=== PATIENT | male | born 1960 | race Caucasian/White ===

== ENCOUNTER → 2020-11-07 09:24 | Outpatient (BNVA) | payer OTHER, SELFPAY | PROVIDERS: PCP Physician Assistant; Visit Provider Internal Medicine Cardiovascular Disease | DX: Z45.018 Encounter for adjustment and management of other part of cardiac pacemaker (principal); I47.2 Ventricular tachycardia | CPT/HCPCS: 99212 ==

== ENCOUNTER 2021-02-27 10:42 | Outpatient (REF) | payer OTHER, SELFPAY ==
[2021-02-27 13:52] LABS: Hematocrit 42.4 % (42-52); Hemoglobin 14.2 g/dl (14.0-18.0); Mean Corpuscular HGB Conc 33.5 g/dl (31.0-36.0); Mean Corpuscular Hemoglobin 31.2 pg (27.0-33.0); Mean Corpuscular Volume 93.2 fL (80-98); Mean Platelet Volume 10.5 fL (9.4-12.4); Platelet Count 187 X10*3/uL (160-400); Red Blood Count 4.55 X10*6/uL (4.60-5.80); Red Cell Distribution Width 12.2 % (11.0-16.0)
[2021-02-27 14:17] LABS: Alanine Aminotransferase 29 U/L (0-40); Albumin Level 4.2 g/dL (3.5-5.0); Alkaline Phosphatase 91 U/L (39-117); Anion Gap 13 (12-20); Aspartate Amino Transferase 28 U/L (5-37); Bilirubin Total 0.8 mg/dL (0.0-1.0); Blood Urea Nitrogen 24 mg/dL (9-16); Calcium 9.3 mg/dL (8.4-10.2); Carbon Dioxide 30 mmol/L (22-29); Chloride 105 mmol/L (96-108); Cholesterol 146 mg/dL; Estimated Glomerular Filt Rate 59; Glucose Fasting 101 mg/dL (60-99); HDL Cholesterol 50 mg/dL; LDL Cholesterol Calculated 75 mg/dl; Potassium 4.1 mmol/L (3.3-5.1); Sodium 144 mmol/L (135-145); Total Protein 6.5 g/dL (6.5-8.0); Triglycerides 109 mg/dL
[2021-02-27 14:29] LABS: Prostate Specific Antigen Scr 1.96 ng/mL (<0.05-4.0); TSH reflex Free T4 2.32 uIU/mL (0.32-4.0)
[2021-02-27 14:39] LABS: Creatinine Urine 142.48 mg/dL; Microalbum/Creatinine Ratio Ur 4.9 ug/mg cr
== END 2021-02-27 10:43 | disposition home or self-care (01) ==
LOC: HO.HMGCLDS 10:42
PROVIDERS: PCP Physician Assistant; Visit Provider Physician Assistant
DX: I10 Essential (primary) hypertension (principal); E78.2 Mixed hyperlipidemia; Z12.5 Encounter for screening for malignant neoplasm of prostate
CPT/HCPCS: 36415; 80053; 80061; 82043; 84153; 84443; 85027

== ENCOUNTER → 2021-04-12 10:07 | Outpatient (BNVA) | payer OTHER, SELFPAY | PROVIDERS: PCP Physician Assistant; Visit Provider Internal Medicine | DX: J44.9 Chronic obstructive pulmonary disease, unspecified (principal) | CPT/HCPCS: 99212 ==

== ENCOUNTER → 2021-05-10 09:52 | Outpatient (BNVA) | payer SELFPAY | PROVIDERS: PCP Physician Assistant | DX: R76.11 Nonspecific reaction to tuberculin skin test without active tuberculosis (principal) ==

== ENCOUNTER → 2021-08-11 09:27 | Outpatient (REF) | payer OTHER, SELFPAY ==
--- NOTE | 2021-08-11 09:32 | CA_ITS ---
Transthoracic Echocardiogram Patient (Last, First, Middle): Holden Man E Gender: Male Date of : 1960 Age: 61 Procedure Date: 08/11/2021 Procedure Type: Transthoracic Echocardiogram Location: OP Height: 177.8 cm Weight: 79.83 kg BSA: 1.98 m2 Heart Rate: bpm BP: 130 / 79 mmHg Lighting Fixture Installer: RONNI Referring MD: Lennie Don AUDIO VISUAL ENGINEERCira Symptoms: I47.2 - Ventricular tachycardia Conclusions: - Normal left ventricular size, thickness, systolic function, and wall motion. The visually estimated ejection fraction is between 55-60%. - Normal right ventricular cavity size and systolic function. Findings Left Ventricle Normal left ventricular size, thickness, systolic function, and wall motion. The visually estimated ejection fraction is between 55-60%. Diastolic function is normal for age. Right Ventricle Normal right ventricular cavity size and systolic function. Atria Both atria are normal in size. Aortic Valve Normal aortic valve structure and function. There is no aortic valve stenosis. There is no aortic valve regurgitation. Mitral Valve Normal mitral valve structure and function. There is no mitral valve regurgitation. There is no mitral valve stenosis. Pulmonic Valve Normal pulmonic valve structure and function. There is trace pulmonic valve regurgitation. Tricuspid Valve Normal tricuspid valve structure. There is trace tricuspid valve regurgitation. Normal right atrial pressure. There is no evidence of pulmonary hypertension. Great Vessels All visible segments of the aorta are normal in size. The visualized portions of the pulmonary artery and branches are normal. Venous The inferior vena cava is normal in size and collapses greater than 50% with inspiration. Pericardium/Pleural Normal pericardial structure. There is no evidence of pericardial effusion. Measurements 2D Linear Measurements IVSd: 0.95 0.6-0.9/0.6-1.0 cm LVIDd: 4.61 3.9-5.3/4.2-5.9 cm LVIDd Index: 2.33 2.4-3.2/2.2-3.1 cm/m2 LVIDs: 3.10 2.0-3.6 cm LVPWd: 1.00 0.7-1.1 cm Ao Root: 3.00 2.1-3.5 cm LA Diam: 2.30 2.7-3.8/3.0-4.0 cm LAIDs Index: 1.16 1.5-2.3 cm/m2 LV Mass: 191.57 67-162/88-224 g LV Mass Index: 96.75 43-95/49-115 g/m2 LVOT Diam: 2.30 3.0+(-)1.3 cm 2D Systolic Function EF 4C: 68.30 >55% EF 2C: 60.90 >55% EF BiP: 64.80 >55% Mitral Valve MV Pk E: 0.67 MV PK A: 0.50 MV Decel Time: 215.00 E/A: 1.30 E'Lateral: 10.60 E'Medial: 7.40 E/E' Med: 9.00 E/E' Lat: 6.30 PHT: 63.00 MVA PHT: 3.49 Decel Taliaferro: 3.10 Aortic Valve AoV Pk Anam: 1.14 AoV Pk Grad: 5.00 LVOT LVOT Pk Anam: 0.81 LVOT Mn Anam: 0.54 LVOT VTI: 0.17 LVOT Pk Grad: 3.00 LVOT Mn Grad: 1.00 LVOT Diam: 2.30 LVOT Area: 4.15 Diastolic Function MV Pk E: 0.67 MV Pk A: 0.50 E/A: 1.30 E'Medial: 7.40 E/E' Med: 9.00 E' Laterial: 10.60 E/E' Lat: 6.30 Right Ventricle TAPSE (mm): 2.26 Tricuspid Valve TR Pk Anam: 2.32 TR Pk Grad: 22.00 RA Press: 3.00 RVSP: 25.00 Great Vessels Aorta Ao Root-2D: 3.00 2.0-3.7 cm Ao Asc: 3.20 2.1-3.4 cm Updated in Other Vendor System with Status of Final Jimy Tucker MD electronically signed on 08/13/2021 5:38:14 PM with status of Final
== END ==
LOC: HO.CARD 09:27
PROVIDERS: PCP Physician Assistant; Visit Provider Nurse Practitioner Family
DX: I47.2 Ventricular tachycardia (principal)
CPT/HCPCS: 93306

== ENCOUNTER 2021-08-26 09:41 | Outpatient (REF) | payer OTHER, SELFPAY ==
--- NOTE | ~2021-08-26 | XR_ITS ---
EXAMINATION: XR CHEST CLINICAL INFORMATION: Pleurodynia COMPARISON: Previous chest x-ray most recent April 2019 TECHNIQUE: 2 views of the chest were obtained. FINDINGS: The cardiac and mediastinal contours are normal. There is a left subclavian dual chamber pacemaker that appears unchanged. The lungs are well inflated. The lungs are clear. There is no pleural effusion or pneumothorax. Bony structures are unremarkable. XR/XR chest 2V IMPRESSION: No evidence for acute disease in the chest.
[2021-08-26 11:32] LABS: Hematocrit 44.2 % (42.0-52.0); Hemoglobin 15.3 g/dl (14.0-18.0); Mean Corpuscular HGB Conc 34.6 g/dl (31.0-36.0); Mean Corpuscular Volume 92.5 fL (80.0-98.0); Mean Platelet Volume 9.7 fL (9.4-12.4); Platelet Count 213 X10*3/uL (160-400); Red Blood Count 4.78 X10*6/uL (4.60-5.80); Red Cell Distribution Width 12.2 % (11.0-16.0); White Blood Count 6.7 X10*3/uL (4.8-10.8)
[2021-08-26 11:45] LABS: Alanine Aminotransferase 29 U/L (0-40); Albumin Level 4.1 g/dL (3.5-5.0); Alkaline Phosphatase 103 U/L (39-117); Anion Gap 13 (12-20); Aspartate Amino Transferase 33 U/L (5-37); Bilirubin Total 1.1 mg/dL (0.0-1.0); Blood Urea Nitrogen 18 mg/dL (9-16); Calcium 9.3 mg/dL (8.4-10.2); Carbon Dioxide 28 mmol/L (22-29); Chloride 105 mmol/L (96-108); Cholesterol 148 mg/dL; Estimated Glomerular Filt Rate 58; Glucose Fasting 111 mg/dL (60-99); HDL Cholesterol 56 mg/dL; LDL Cholesterol Calculated 71 mg/dl; Sodium 141 mmol/L (135-145); Total Protein 6.6 g/dL (6.5-8.0); Triglycerides 106 mg/dL
[2021-08-26 12:12] LABS: Prostate Specific Antigen Scr 2.37 ng/mL (<0.05-4.0); TSH reflex Free T4 1.82 uIU/mL (0.32-4.0)
== END 2021-08-26 09:42 | disposition home or self-care (01) ==
LOC: HO.HMGCX 09:41
PROVIDERS: PCP Physician Assistant; Visit Provider Physician Assistant
DX: Z12.5 Encounter for screening for malignant neoplasm of prostate (principal); R07.81 Pleurodynia; I10 Essential (primary) hypertension; E78.2 Mixed hyperlipidemia
CPT/HCPCS: 36415; 71046; 80053; 80061; 84153; 84443; 85027

== ENCOUNTER 2022-01-12 09:08 | Outpatient (REF) | payer OTHER, SELFPAY ==
[2022-01-12 11:35] LABS: Hematocrit 42.1 % (42.0-52.0); Hemoglobin 14.4 g/dl (14.0-18.0); Mean Corpuscular HGB Conc 34.2 g/dl (31.0-36.0); Mean Corpuscular Hemoglobin 31.2 pg (27.0-33.0); Mean Corpuscular Volume 91.3 fL (80.0-98.0); Mean Platelet Volume 9.6 fL (9.4-12.4); Platelet Count 189 X10*3/uL (160-400); Red Blood Count 4.61 X10*6/uL (4.60-5.80); Red Cell Distribution Width 12.2 % (11.0-16.0); White Blood Count 6.4 X10*3/uL (4.8-10.8)
[2022-01-12 12:05] LABS: Alanine Aminotransferase 30 U/L (0-40); Alkaline Phosphatase 88 U/L (39-117); Anion Gap 11 (12-20); Aspartate Amino Transferase 26 U/L (5-37); Bilirubin Total 0.5 mg/dL (0.0-1.0); Blood Urea Nitrogen 20 mg/dL (9-16); Calcium 9.5 mg/dL (8.4-10.2); Carbon Dioxide 31 mmol/L (22-29); Chloride 105 mmol/L (96-108); Cholesterol 137 mg/dL; Estimated Glomerular Filt Rate > 60; Glucose Fasting 111 mg/dL (60-99); HDL Cholesterol 52 mg/dL; LDL Cholesterol Calculated 72 mg/dl; Magnesium 2.2 mg/dL (1.6-2.6); Potassium 4.6 mmol/L (3.3-5.1); Sodium 142 mmol/L (135-145); Total Protein 6.3 g/dL (6.5-8.0); Triglycerides 67 mg/dL
[2022-01-12 12:28] LABS: Prostate Specific Antigen 1.87 ng/mL (<0.05-4.0)
== END 2022-01-12 09:09 | disposition home or self-care (01) ==
LOC: HO.HMGCLDS 09:08
PROVIDERS: Visit Provider Nurse Practitioner Family
DX: Z00.00 Encounter for general adult medical examination without abnormal findings (principal); I47.2 Ventricular tachycardia; E78.2 Mixed hyperlipidemia
CPT/HCPCS: 36415; 80053; 80061; 83735; 84153; 85027

== ENCOUNTER → 2022-01-31 09:37 | Outpatient (REF) | payer OTHER, SELFPAY ==
--- NOTE | ~2022-01-31 | NM_ITS ---
Lexiscan Myocardial perfusion study Indication: Shortness of breath, history of SVT, prominent pacemaker, assess for coronary disease and ischemia Technique: The patient was brought in for a Lexiscan perfusion study on 01/31/2022 and was injected 0.4 mg of Lexiscan intravenously. Within a minute of this injection 30 mCi of sestamibi was given intravenously. Images were obtained using the SPECT gamma camera interlaced with the gating device. Images were obtained in supine position. Resting perfusion study was performed on 02/01/2022. Patient was administered 30 mCi of sestamibi intravenously at rest. Images were then obtained in supine position. Total DLP 81mGy-cm. Images were processed with the software and compared side to side in short axis, horizontal long axis and vertical long axis views. Findings: Raw acquisition was reviewed. The stress perfusion study showed diminished tracer uptake along the inferior wall. With CT attenuation correction, there is improvement in tracer uptake and hence could be from diaphragmatic attenuation artifact. The gated study shows normal LV systolic function with calculated LVEF of 60%. LV cavity is normal in size. The gated study shows normal wall thickening and contraction of segments. Resting study shows diminished tracer uptake along the inferior wall. However there is improved uptake with CT attenuation correction sestamibi diaphragmatic attenuation artifact. Gating at rest reveals normal wall motion with ejection fraction at 55%. The findings are consistent with fixed inferior wall defect. No reversible defects. NM/NM cardiolite stress test Impression: 1. Myocardial perfusion imaging study shows no clear evidence of ischemia or infarction. Likely normal perfusion. 2. Gated LVEF percent during stress and 55% during rest. 3. Transient ischemic dilatation not present. EKG component of the test reported separately.
--- NOTE | 2022-01-31 09:43 | CA_ITS ---
Acquisition Time: 2022-01-31 09:55:35 Total Exercise Time: 00:02:00 Test Indications: SOB Medications: SEE CHART Protocol: LEXISCAN Max HR: 096 BPM 61% of Pred: 157 BPM Max BP: 134/074 mmHG Max Work Load: 1.0 METS Pharmacological stress test using Lexiscan while sitting and kicking his feet. Pt tolerated well, denies any anginal sx. EKG without any arrhythmias, non-diagnostic for ischemia. Nuclear images to follow. Normotensive response to test. Test reviewed with Dr. Mccrary Referred By: Lennie Don Overread By: Shae Yoo NP
== END ==
LOC: HO.CARD 09:37
PROVIDERS: Visit Provider Nurse Practitioner Family
DX: I47.2 Ventricular tachycardia (principal); Z95.0 Presence of cardiac pacemaker
CPT/HCPCS: 78452; 93017; A9500; J0280; J2785

== ENCOUNTER → 2022-04-10 09:52 | Outpatient (BNVA) | payer OTHER, SELFPAY | PROVIDERS: PCP Physician Assistant; Visit Provider Internal Medicine | DX: J41.0 Simple chronic bronchitis (principal) | CPT/HCPCS: 94010; 99212 ==

== ENCOUNTER → 2022-07-24 10:30 | Outpatient (BNVA) | payer OTHER, SELFPAY | PROVIDERS: PCP Physician Assistant; Referring Provider Physician Assistant; Visit Provider Internal Medicine Cardiovascular Disease | DX: Z45.018 Encounter for adjustment and management of other part of cardiac pacemaker (principal); I47.20 Ventricular tachycardia, unspecified; I10 Essential (primary) hypertension | CPT/HCPCS: 93005; 93280; 99212 ==

== ENCOUNTER → 2023-04-18 11:10 | Outpatient (BNVA) | payer OTHER, SELFPAY | PROVIDERS: PCP Physician Assistant; Visit Provider Internal Medicine | DX: J41.0 Simple chronic bronchitis (principal) | CPT/HCPCS: 99212 ==

== ENCOUNTER → 2023-05-06 23:59 | Outpatient (BNV) | payer OTHER, SELFPAY ==
--- NOTE | 2023-05-15 15:00 | MHC.OFFVIS ---
Intake Intake Visit Reasons: Remote Device Check- [facility] Allergies No Known Allergies Allergy (Verified 04/18/23 11:43) PFS Medical History Cardiac pacemaker in situ COPD (chronic obstructive pulmonary disease) H/O malignant melanoma of skin NSVT (nonsustained ventricular tachycardia) Second degree AV block Surgical History History of Mohs micrographic surgery for skin cancer History of permanent cardiac pacemaker placement Hx of colonoscopy Family History Father Lung cancer Mother No problems noted. 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 ) Office Procedures Cardiac Device Check Cardiac Device Check Details: Remote pacemaker report generated 05/06/2023. Pacemaker function is adequate [id number] Cardiac Device Interrogation, pacemaker Procedure code (CPT) selection complete Coding Level of Care Code Procedure Only Diagnoses CPT Codes Cardiac Device Check - Cardiac Device 12: [id number] Cardiac Device Interrogation, pacemaker ([id number])
== END ==
PROVIDERS: PCP Physician Assistant; Visit Provider Internal Medicine Cardiovascular Disease
DX: I47.20 Ventricular tachycardia, unspecified (principal); Z95.0 Presence of cardiac pacemaker
CPT/HCPCS: 93294

== ENCOUNTER → 2023-08-05 23:59 | Outpatient (BNV) | payer MEDICARE, SELFPAY ==
--- NOTE | 2023-08-05 16:30 | MHC.OFFVIS ---
Intake Intake Visit Reasons: Remote Device Check- [facility] Allergies No Known Allergies Allergy (Verified 04/18/23 11:43) [facility] Medical History Cardiac pacemaker in situ COPD (chronic obstructive pulmonary disease) H/O malignant melanoma of skin NSVT (nonsustained ventricular tachycardia) Second degree AV block Surgical History History of Mohs micrographic surgery for skin cancer History of permanent cardiac pacemaker placement Hx of colonoscopy Family History Father Lung cancer Mother No problems noted. 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 ) Office Procedures Cardiac Device Check Cardiac Device Check Details: Remote pacemaker report generated 08/05/2023. Pacemaker function is adequate [id number] Cardiac Device Interrogation, pacemaker Procedure code (CPT) selection complete Coding Level of Care Code Procedure Only CPT Codes Cardiac Device Check - Cardiac Device 12: [id number] Cardiac Device Interrogation, pacemaker ([id number])
== END ==
PROVIDERS: PCP Physician Assistant; Visit Provider Internal Medicine Cardiovascular Disease
DX: I44.1 Atrioventricular block, second degree (principal); Z95.0 Presence of cardiac pacemaker
CPT/HCPCS: 93294

== ENCOUNTER 2023-08-13 11:16 | Outpatient (AMB) | payer MEDICARE, SELFPAY ==
[2023-08-13 11:20] VITALS: BP 120/80; PULSE 56; BMI 26.3
--- NOTE | 2023-08-13 11:20 | A.OFFVIS_ITS ---
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 He has been doing well. He denies any symptoms of palpitations. Complains of exertional shortness of breath related to his COPD and feels tired. Denies any orthopnea, PND. No exertional chest pain. Takes all his medications regularly. [facility] Medical History COPD (chronic obstructive pulmonary disease) H/O malignant melanoma of skin NSVT (nonsustained ventricular tachycardia) Second degree AV block Cardiac pacemaker in situ Surgical History History of Mohs micrographic surgery for skin cancer Hx of colonoscopy History of permanent cardiac pacemaker placement Family History Father Lung cancer Mother No problems noted. 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 ) Review of Systems Const Denies chills, Denies fatigue, Denies fever(s), Denies frequent falls, Denies weakness, Denies weight gain and Denies weight loss ENT Denies dizziness Card Denies chest pain, Denies leg edema, Denies lightheadedness, Denies palpitations, Denies dyspnea, Denies dyspnea on exertion, Denies orthopnea and Denies other (loss of consciousness) Resp Denies cough, Denies dyspnea and Denies dyspnea on exertion GI Denies hematochezia and Denies change in stool character Musc Denies abnormal gait, Denies muscle weakness, Denies numbness, Denies radiating pain into limb and Denies tingling Neuro Denies abnormal gait, Denies dizziness, Denies frequent falls, Denies numbness, Denies tingling and Denies weakness Endo Denies fatigue and Denies palpitations Physical Exam Vital Signs: Last Vital Signs Pulse 56 08/13/23 11:20 BP 120/80 08/13/23 11:20 BMI result Body Mass Index 26.3 Const General: cooperative, comfortable, alert and awake Nutritional Appearance: average body habitus Orientation/consciousness: patient oriented x3 Limitations: no limitations Neck Neck: Yes trachea midline, Yes supple and Yes no JVD Chest Chest palpation & inspection: normal inspection of the chest Resp Effort & Inspection: normal respiratory effort Auscultation: clear to auscultation bilaterally and diminished lung sounds Cardio Jugular venous distension: no JVD Palpation: normal PMI Rate: regular rate Rhythm: regular rhythm Heart sounds: S1 normal heart sound present and S2 normal heart sound present GI Auscultation: normal bowel sounds Skin General skin exam: no rashes or lesions noted Neuro General: patient oriented x3 and no focal motor deficits Extrem General: Yes no clubbing, cyanosis or edema Psych Appearance: grossly normal Office Procedures Cardiac Device Check Cardiac Device Check Details: Dual-chamber [facility] pacemaker in place. Programmed in DDDR at 60 beats per minute. No arrhythmias detected. Atrial pacing 26% of the time. Atrial pacing thresholds adequate and in our capture mode. RV pacing thresholds adequate. Atrial ventricular sensing is adequate. Pacing lead impedance is stable. Battery life is at about 7 years [id number] Cardiac Device Check, pacemaker dual lead Procedure code (CPT) selection complete EKG Details: EKG shows sinus bradycardia with RSR prime pattern in lead V1 with septal QS pattern [id number], Complete Assessment & Plan Assessment & Plan (1) Cardiac pacemaker in situ: Comment: For second-degree AV block, has not had any chest discomforts or palpitations. Code(s): Z95.0 - Presence of cardiac pacemaker Plan: Cardiac pacemaker in-situ for second-degree AV block but mostly pacing in the a trium. Patient denies any current cardiac symptoms. Will continue follow the pacemaker remotely every 3 months and follow up in the clinic in 1 year's time. (2) NSVT (nonsustained ventricular tachycardia): Code(s): I47.2 - Ventricular tachycardia Plan: Prior history of nonsustained VT without any clinical recurrence or recurrent by pacer telemetry. Continue to use metoprolol for suppression. Avoidance of stimulants was discussed. (3) HTN (hypertension): Code(s): I10 - Essential (primary) hypertension Qualifiers: Hypertension type: essential hypertension Qualified Code(s): I10 - Essential (primary) hypertension Plan: Hypertension which is currently well optimized advised to monitor blood pressure at home maintain a log. Goal blood pressure less than 130/84. Low-salt diet was discussed. Importance of good blood pressure control was discussed. Advise increase activity level. Follow up in the clinic 1 year's time, sooner p.r.n.. Thank you for allowing me to partake in his care Coding Level of Care Code Est Pt Level 4 (03452) Diagnoses Cardiac pacemaker in situ Z95.0 NSVT (nonsustained ventricular tachycardia) I47.2 Essential hypertension I10 Hypertension type: essential hypertension CPT Codes Cardiac Device Check - Cardiac Device 2: 42391-VT Cardiac Device Check, pacemaker dual lead ([id number]) EKG - CPT: 32131-Jmtdvmfamfttiypza, Complete ([id number])
== END 2023-08-13 11:48 | disposition home or self-care (01) ==
PROVIDERS: Visit Provider Internal Medicine Cardiovascular Disease
DX: I47.20 Ventricular tachycardia, unspecified (principal); Z95.0 Presence of cardiac pacemaker; I10 Essential (primary) hypertension
CPT/HCPCS: 93280; 99214

== ENCOUNTER → 2023-08-13 11:16 | Outpatient (BNVA) | payer MEDICARE, SELFPAY | PROVIDERS: Visit Provider Internal Medicine Cardiovascular Disease | DX: Z45.018 Encounter for adjustment and management of other part of cardiac pacemaker (principal); I47.20 Ventricular tachycardia, unspecified; I10 Essential (primary) hypertension | CPT/HCPCS: 93005; 93280; 99212 ==

== ENCOUNTER 2023-09-13 09:21 | Outpatient (REF) | payer MEDICARE, SELFPAY ==
[2023-09-13 11:37] LABS: Hematocrit 43.9 % (42.0-52.0); Hemoglobin 14.8 g/dl (14.0-18.0); Mean Corpuscular HGB Conc 33.7 g/dl (31.0-36.0); Mean Corpuscular Hemoglobin 31.4 pg (27.0-33.0); Platelet Count 210 X10*3/uL (160-400); Red Blood Count 4.72 X10*6/uL (4.60-5.80); Red Cell Distribution Width 12.1 % (11.0-16.0); White Blood Count 6.5 X10*3/uL (4.8-10.8)
[2023-09-13 12:06] LABS: Alanine Aminotransferase 25 U/L (0-40); Albumin Level 4.1 g/dL (3.5-5.0); Alkaline Phosphatase 96 U/L (39-117); Anion Gap 10 (12-20); Aspartate Amino Transferase 25 U/L (5-37); Bilirubin Total 0.6 mg/dL (0.0-1.0); Blood Urea Nitrogen 24 mg/dL (9-16); Calcium 9.5 mg/dL (8.4-10.2); Carbon Dioxide 29 mmol/L (22-29); Chloride 108 mmol/L (96-108); Cholesterol 148 mg/dL (<200); Estimated Glomerular Filt Rate > 60; Glucose Fasting 103 mg/dL (60-99); HDL Cholesterol 55 mg/dL (>40); LDL Cholesterol Calculated 72 mg/dL (<100); Potassium 4.3 mmol/L (3.3-5.1); Sodium 143 mmol/L (135-145); Total Protein 6.9 g/dL (6.5-8.0); Triglycerides 108 mg/dL (<150)
[2023-09-13 12:10] LABS: Prostate Specific Antigen Scr 2.51 ng/mL (<0.05-4.0)
[2023-09-13 12:36] LABS: Creatinine Urine 76.47 mg/dL; Microalbumin Urine < 5.0 mg/L
== END 2023-09-13 09:22 | disposition home or self-care (01) ==
LOC: HO.HMGCLDS 09:21
PROVIDERS: PCP Physician Assistant; Visit Provider Physician Assistant
DX: I10 Essential (primary) hypertension (principal); E78.2 Mixed hyperlipidemia; Z12.5 Encounter for screening for malignant neoplasm of prostate
CPT/HCPCS: 36415; 80053; 80061; 82043; 82570; 84153; 85027

== ENCOUNTER → 2023-11-04 23:59 | Outpatient (BNV) | payer MEDICARE, SELFPAY ==
--- NOTE | 2023-11-05 12:27 | MHC.OFFVIS ---
Intake Intake Visit Reasons: Remote Device Check- [facility] Allergies No Known Allergies Allergy (Verified 04/18/23 11:43) PFSH Medical History COPD (chronic obstructive pulmonary disease) H/O malignant melanoma of skin NSVT (nonsustained ventricular tachycardia) Second degree AV block Cardiac pacemaker in situ Surgical History History of Mohs micrographic surgery for skin cancer Hx of colonoscopy History of permanent cardiac pacemaker placement Family History Father Lung cancer Mother No problems noted. 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 ) Office Procedures Cardiac Device Check Cardiac Device Check Details: Remote pacemaker report generated 11/04/2023. Pacemaker function is adequate. One episode of high ventricular rate noted consistent with SVT [id number] Cardiac Device Interrogation, pacemaker Procedure code (CPT) selection complete Assessment & Plan Assessment & Plan (1) Cardiac pacemaker in situ: Comment: For second-degree AV block, has not had any chest discomforts or palpitations. Code(s): Z95.0 - Presence of cardiac pacemaker Plan: See above Coding Level of Care Code Procedure Only Diagnoses Cardiac pacemaker in situ Z95.0 CPT Codes Cardiac Device Check - Cardiac Device 12: [id number] Cardiac Device Interrogation, pacemaker ([id number])
== END ==
PROVIDERS: PCP Physician Assistant; Visit Provider Internal Medicine Cardiovascular Disease
DX: I47.20 Ventricular tachycardia, unspecified (principal); Z95.0 Presence of cardiac pacemaker
CPT/HCPCS: 93294

== ENCOUNTER → 2024-02-03 23:59 | Outpatient (BNV) | payer MEDICARE, SELFPAY ==
--- NOTE | 2024-02-04 16:44 | MHC.OFFVIS ---
Intake Visit Reasons: Remote device check- [facility] Allergies No Known Allergies Allergy (Verified 04/18/23 11:43) PFSH Medical History COPD (chronic obstructive pulmonary disease) H/O malignant melanoma of skin NSVT (nonsustained ventricular tachycardia) Second degree AV block Cardiac pacemaker in situ Surgical History History of Mohs micrographic surgery for skin cancer Hx of colonoscopy History of permanent cardiac pacemaker placement Family History Father Lung cancer Mother No problems noted. 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 ) Office Procedures Cardiac Device Check Cardiac Device Check Details: Remote pacemaker report generated 02/03/2024. Pacemaker function is adequate. Two high ventricular rate episode most consistent with SVT [id number] Cardiac Device Interrogation, pacemaker Procedure code (CPT) selection complete Assessment & Plan Assessment & Plan (1) Cardiac pacemaker in situ: Comment: For second-degree AV block, has not had any chest discomforts or palpitations. Code(s): Z95.0 - Presence of cardiac pacemaker Category: Medical Plan: See above Coding Level of Care Code Procedure Only Diagnoses Cardiac pacemaker in situ Z95.0 CPT Codes Cardiac Device Check - Cardiac Device 12: [id number] Cardiac Device Interrogation, pacemaker ([id number])
== END ==
PROVIDERS: PCP Physician Assistant; Visit Provider Internal Medicine Cardiovascular Disease
DX: I44.1 Atrioventricular block, second degree (principal); Z95.0 Presence of cardiac pacemaker
CPT/HCPCS: 93294

== ENCOUNTER 2024-03-03 11:05 | Outpatient (AMB) | payer MEDICARE, SELFPAY ==
--- NOTE | 2024-03-03 11:05 | A.OFFPC_ITS ---
Vital Signs 03/03/24 11:06 Height 5 ft 10 in Weight 182 lb 4 oz BMI 26.1 BP 134/82 Blood Pressure Location Lt brachial Position Sitting Pulse 72 Pulse Source Pulse Oximeter Pulse Oximetry (%) 96 Oxygen Delivery Method Room Air Intake Visit Reasons: pe Intake Note: Patient is here today for a physical. Senior Security Engineer Required: No Accompanied by: Self / Same As Patient Allergies No Known Allergies Allergy (Verified 03/03/24 11:15) Medication List - Last Reconciled 03/03/24 by Mazin Cee PA-C albuterol sulfate 90 mcg/actuation (Ventolin HFA) 2 puffs inhalation Q4-6H PRN 6 months atorvastatin 20 mg PO DAILY lisinopril-hydrochlorothiazide 10-12.5 mg 1 tab PO DAILY lorazepam 0.5 mg PO DAILY PRN 10 days metoprolol succinate ER 50 mg PO DAILY Tobacco use date assessed: 03/03/24 Fall risk assessment: No Falls in past year Last assessed Fall Risk: 03/03/24 Dental Screening Dental Screen Date: 03/03/24 Did you have a dental visit in the last 12 months?: No Did you have a dental problem in the last 6 months where you did not have access to dental care?: No Was dental information given to patient?: Patient declined HPI pe HPI Details Talib is a 63 y/o M here today? for annual physical. Patient has pmhx significant for AV block (has pacemaker placed), COPD,? h/o melanoma, Insomnia , HTN, mood disorder. concerns--> report having neck and low back pain over the last 2 week. He does report having swelling over the left side of his neck to he attributes to maybe a swollen lymph node. He can not recall any injury. He does report doing some yd work recently that could have provoked some neck and back pain. He also reports getting 3 vaccines recently that may be attributing to his neck pain and swollen lymph node. ? .. ? AV- block- IS followed by a virtual recruiter (Dr. Mccrary) once per year , does get his pacemaker checked Q 6 months . Recently has gotten a nuclear stress test which was essentially normal. ? .. ? HTN: Does check his blood pressure at home report blood pressure have stable, reports it had been very under control. ? .. ? Anxiety:? He be ports he has completely weaned of fluoxetine and now only using lorazepam on a limited p.r.n. basis for anxious symptoms. ? .. ? COPD: Has seen Pulmonology - dx with COPD ( mild- mod) PFT showing evidence. Patient now uses rescue inhaler a p.r.n. basis. He does report having some shortness of breath upon inclined physical activity. He will follow-up with his entry level administrative assistant about this. Does not do a maintenance inhaler though does take an albuterol inhaler on a very limited p.r.n. basis. Vaccine: UTD with PCV, up-to-date with COVID at the Needs Tdap , decline flu vaccine ,UTD with shingles vaccine. . Colonoscopy: done in 2019- normal -repeat 10 years Laboratory Tests 01/12/22 09:27 RBC 4.61 PFS Medical History COPD (chronic obstructive pulmonary disease) H/O malignant melanoma of skin NSVT (nonsustained ventricular tachycardia) Second degree AV block Cardiac pacemaker in situ Surgical History History of Mohs micrographic surgery for skin cancer Hx of colonoscopy History of permanent cardiac pacemaker placement Family History Father Lung cancer Mother No problems noted. 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 ) Questionnaire PHQ-9 Over the last 2 weeks, how often have you been bothered by any of the following problems? 1. Little interest or pleasure in doing things: not at all 2. Feeling down, depressed, or hopeless: not at all 3. Trouble falling or staying asleep, or sleeping too much: not at all 4. Feeling tired or having little energy: not at all 5. Poor appetite or overeating: not at all 6. Feeling bad about yourself - or that you are a failure or have let yourself or your family down: not at all 7. Trouble concentrating on things, such as reading the newspaper or watching television: not at all 8. Moving or speaking so slowly that other people could have noticed. Or the opposite - being so fidgety or restless that you have been moving around a lot more than usual: not at all 9. Thoughts that you would be better off or of hurting yourself in some way: not at all Total score: 0 Depression Screening Interpretation: Negative Depression Screening Done: Yes 92584 - PHQ-9 Billing: Yes Source: Developed by Drs. Dipak Thomas, Annabella Joya, Raciel Gauthier and colleagues, with an educational reagan from [employer]. Thrive Questionnaire Date Thrive assessed: 03/03/24 I am a: Patient What is your living situation today?: I have a steady place to live Within the past 12 months, did the food you bought not last and you didn't have the money to get more?: Never true Within the past 12 months, did you worry whether your food would run out before you got money to buy more?: Never true Do you have trouble paying for medicines?: No Do you have trouble getting transportation to medical appointments?: No Do you have trouble paying your heating and electricity bill?: No Do you have trouble taking care of your child, family member or friend?: No Do you have trouble with day-to-day activities such as bathing, preparing meals, shopping, managing finances, etc.?: No Are you currently unemployed and looking for a job?: No Are you interested in more education?: No Please select the resources that you would like help with: None Currently or been in a relationship where the following occur: no concerns reported THRIVE Score: 0 AUDIT C Alcohol Use Questionnaire (AUDIT-C) 1. How often do you have a drink containing alcohol?: Never 3. How often do you have six or more drinks on one occasion?: Never Total Score: 0 GABY-7 AMB Questionnaire GABY-7 Date GABY - 7 assessed: 03/03/24 Feeling nervous, anxious, or on edge: 0 = Not at all Not being able to stop or control worryin = Not at all Worrying too much about different things: 0 = Not at all Trouble relaxin = Not at all Being so restless that it is hard to sit still: 0 = Not at all Becoming easily annoyed or irritable: 0 = Not at all Feeling afraid as if something awful might happen: 0 = Not at all Total GABY-7 score (0-4 normal; 5-9 mild; 10-14 moderate; 15-21 severe): 0 Source: Developed by Drs. Dipak Thomas, Annabella Joay, Raciel Gauthier and colleagues, with an educational reagan from [employer]. GABY-7 Assessment Billing GABY-7 Assessment Tool: GABY-7 Assessment 89703 Review of Systems Const Denies body aches, Denies chills, Denies excessive sweating, Denies fatigue, Denies fever(s) and Denies headache(s) Eyes Denies blurry vision ENT Denies dysphagia, Denies vertigo, Denies dizziness, Denies headache(s), Denies hearing loss and Denies tinnitus Card Denies chest pain, Denies chest pain with activity, Denies syncope, Denies irregular heart rhythm and Denies dyspnea Resp Denies chest congestion, Denies cough, Denies hemoptysis, Denies dyspnea and Denies wheezing GI Denies abdominal pain, Denies melena, Denies hematochezia, Denies coffee ground emesis, Denies dysphagia, Denies diarrhea, Denies nausea and Denies vomiting Denies difficulty urinating, Denies dysuria, Denies urinary frequency, Denies urinary hesitancy and Denies urinary urgency Musc Denies arthralgias, Denies limited range of motion, Denies muscle cramps and Denies muscle weakness Skin/Breast Denies rash and Denies skin ulcer Neuro Denies Abnormal speech present, Denies confusion, Denies vertigo, Denies dizziness, Denies syncope, Denies headache(s), Denies memory loss and Denies seizure-like activity Psych Denies anxiety, Denies confusion, Denies depression, Denies memory loss, Denies panic attacks and Denies paranoia Endo Denies excessive sweating, Denies fatigue, Denies flushing, Denies polydipsia and Denies polyuria Aller/Immun Denies wheezing Physical exam (Primary Care) Vital Signs: Last Vital Signs Pulse 72 03/03/24 11:06 BP 134/82 03/03/24 11:06 Pulse Ox 96 03/03/24 11:06 Oxygen Delivery Method Room Air 03/03/24 11:06 BMI result Body Mass Index 26.1 Tobacco/Smoking Status: Tobacco use Status Tobacco use date assessed 03/03/24 03/03/24 11:11 Patient Tobacco Use Status Former Tobacco user 03/03/24 11:14 e-Cigarette/Vaping Use Never Used 03/03/24 11:14 PHQ-9: PHQ-9 Score PHQ-9: Total score 0 03/03/24 11:11 Depression Screening Interpretation: Negative Thrive Assessment: Date of Thrive Assessment Date Thrive assessed 03/03/24 03/03/24 11:11 Currently or been in a relationship where the following occur: no concerns reported Const General: cooperative, comfortable, no acute distress, alert and awake; No confusion Orientation/consciousness: oriented to person, oriented to place, patient oriented x3 and No confusion HENMT Head: Yes normocephalic Ears: external ears normal and TM's normal bilaterally Face and sinus: No sinus tenderness Mouth: Normal oral and palatal mucosa present and tongue normal Teeth and gingiva: dentition normal and gingiva normal Throat: Yes posterior oropharynx normal, Yes tonsils normal and Yes uvula midline Eyes Conjunctivae: conjunctivae normal Sclerae: sclerae normal Pupils: Equal, round and reactive pupils present EOM: EOMs intact bilaterally Direct Ophthalmoscopy: No no photophobia Neck Neck: Yes no lymphadenopathy, No tender and Yes no JVD Thyroid: Thyroid normal Carotids: no bruits Chest Chest palpation & inspection: no tenderness Resp Effort & Inspection: normal respiratory effort, no audible wheezes, not labored and no stridor Auscultation: no crackles, no rales, no rhonchi and no wheezes Cardio Jugular venous distension: no JVD Rate: regular rate, not bradycardic and not tachycardic Rhythm: regular rhythm Bruits: no carotid bruits Peripheral pulses: Peripheral pulses 2+ throughout GI Inspection: Yes normal to inspection, No abdominal wall ecchymosis and No visible herniation Palpation (GI): Soft to palpation, nontender, no guarding, not rigid and No hepatosplenomegaly present Auscultation: normoactive bowel sounds General: Yes no CVA tenderness Back/Spine/Pelvis Back: no CVA tenderness and No back tenderness Cervical Spine: cervical ROM normal Thoracic/Lumbar Spine: thoracic and lumbar spine normal to inspection, straight leg raise negative bilaterally, No thoraco-lumbar ROM limited and No lumbar spinal tenderness Skin Lesions: no lesions Rashes: no rashes Wounds: no wounds Neuro General: oriented to person, oriented to place, patient oriented x3, CN's II-XI intact bilaterally and No confusion Cranial nerves: Yes Equal, round and reactive pupils present and Yes Normal accommodation reflex present Cognition (Neuro): normal cognition Speech: No Abnormal speech present Gait exam (Neuro): Normal gait present Motor exam (neuro): 5/5 motor strength present throughout Extrem Right upper extremity: full ROM; no cyanosis Left upper extremity: full ROM; no cyanosis Right lower extremity: no edema Left lower extremity: no edema Psych Appearance: grossly normal Mental Status: mental status grossly normal Affect: normal affect Attitude: cooperative Thought process: Normal thought process present Assessment and Plan Assessment & Plan (1) Annual physical exam: Code(s): Z00.00 - Encounter for general adult medical examination without abnormal findings (2) COPD (chronic obstructive pulmonary disease): Comment: HE IS KNOWN TO HAVE MILD COPD. AND HIS SYMPTOMS ARE RELATIVELY MILD. TX: USE VENTOLIN 2 PUFFS Q 4-6 HOURS ONLY P.R.N. AND KEEP IT AVAILABLE ESPECIALLY WHEN GOING FOR CAMPING/HIKING SCRIPT IS RENEWED . REVISIT ONCE A YEAR AND IF NEEDED IN BETWEEN. Code(s): J44.9 - Chronic obstructive pulmonary disease, unspecified Qualifiers: COPD type: chronic bronchitis Chronic bronchitis type: simple Qualified Code(s): J41.0 - Simple chronic bronchitis Plan: Continues with only p.r.n. use of his albuterol inhaler. Does report some increased shortness of breath on incline physical activity and will bring this up with entry level administrative assistant. (3) NSVT (nonsustained ventricular tachycardia): Code(s): I47.2 - Ventricular tachycardia Plan: Continues to follow cardiology. Does have pacemaker remotely checked has not had any issues. He continues on use of metoprolol 50 mg daily. No reports of palpitations, dizziness or chest discomforts as of late. (4) HTN (hypertension): Code(s): I10 - Essential (primary) hypertension Qualifiers: Hypertension type: essential hypertension Qualified Code(s): I10 - Essential (primary) hypertension Plan: Blood pressure today in office acceptable. Will continue his current dose of lisinopril hydrochlorothiazide with goal blood pressure to be below 140/90 (5) GABY (generalized anxiety disorder): Code(s): F41.1 - Generalized anxiety disorder Plan: He reports his anxiety has been well controlled with only p.r.n. use of lorazepam. Has completely weaned off of SSRI therapy. Today's GABY-7 score negative. (6) H/O melanoma excision: Code(s): Z98.890 - Other specified postprocedural states; Z85.820 - Personal history of malignant melanoma of skin Plan: Patient does have history of melanoma excision on for the left side of his neck. Has not had any recent follow-up with Dermatology would like to follow-up with Dermatology soon for melanoma surveillance. (7) HLD (hyperlipidemia): Code(s): E78.5 - Hyperlipidemia, unspecified Qualifiers: Hyperlipidemia type: mixed hyperlipidemia Qualified Code(s): E78.2 - Mixed hyperlipidemia Plan: Patient most recent lipid panel showing appropriate LDL and total cholesterol. Will continue statin therapy. With goal LDL to be below 130 (8) Cervical arthritis with myelopathy: Code(s): M47.12 - Other spondylosis with myelopathy, cervical region Plan: Patient seems to be having a muscular issue in his neck. Could be related to his recent vaccine causing some adenopathy. Will supply patient with baclofen 10 mg to use at night to help with relaxing his muscles. Likely a self-limiting issue. Orders: Orders Complete Blood Count no Diff 03/03/24 J41.0 - Simple chronic bronchitis Microalbumin, Random (w Creat) 03/03/24 I10 - Essential (primary) hypertension Comprehensive Success. Panel Fast 03/03/24 E78.2 - Mixed hyperlipidemia Lipid Panel 03/03/24 E78.2 - Mixed hyperlipidemia Prostate Specific Antigen Scr 03/03/24 I10 - Essential (primary) hypertension, Z12.5 - Encounter for screening for malignant neoplasm of prostate Medications: New baclofen 10 mg PO BEDTIME 10 tabs 0RF 10 days M47.12 - Other spondylosis with myelopathy, cervical region Refilled lisinopril-hydrochlorothiazide 10-12.5 mg 1 tab PO DAILY 90 tabs 3RF I10 - Essential (primary) hypertension Patient Instructions: Goal: Blood pressure to remain below 140/90 Barriers: Adherence to healthy eating habits and physical activity Coding Level of Care Code Est Pt Prev Care >65y(08217) Diagnoses Annual physical exam Z00.00 Simple chronic bronchitis J41.0 COPD type: chronic bronchitis Chronic bronchitis type: simple NSVT (nonsustained ventricular tachycardia) I47.2 Essential hypertension I10 Hypertension type: essential hypertension GABY (generalized anxiety disorder) F41.1 H/O melanoma excision Z98.890; Z85.820 Mixed hyperlipidemia E78.2 Hyperlipidemia type: mixed hyperlipidemia Cervical arthritis with myelopathy M47.12 Additional Codes GABY-7 Assessment Billing - GABY-7 Assessment Tool: GABY-7 Assessment [id number] ([id number])
[2024-03-03 11:06] VITALS: BP 134/82; PULSE 72; O2SAT 96; BMI 26.1
== END 2024-03-03 11:41 | disposition home or self-care (01) ==
LOC: HO.HMGH 11:05
PROVIDERS: PCP Physician Assistant; Visit Provider Physician Assistant
DX: J41.0 Simple chronic bronchitis (principal); I47.20 Ventricular tachycardia, unspecified; M47.12 Other spondylosis with myelopathy, cervical region; I10 Essential (primary) hypertension; F41.1 Generalized anxiety disorder; Z98.890 Other specified postprocedural states; Z85.820 Personal history of malignant melanoma of skin; E78.2 Mixed hyperlipidemia
CPT/HCPCS: 99214

== ENCOUNTER 2024-04-20 09:08 | Outpatient (AMB) | payer MEDICARE, SELFPAY ==
--- NOTE | 2024-04-20 09:14 | A.OFFVIS_ITS ---
Vital Signs 04/20/24 09:17 Height 5 ft 10 in Weight 180 lb 12.465 oz BMI 25.9 BP 112/64 Blood Pressure Location Lt brachial Position Sitting Pulse 55 Pulse Source Pulse Oximeter Pulse Oximetry (%) 96 Oxygen Delivery Method Room Air Intake Visit Reasons: copd Intake Note: pt is here for follow up and states he is feeling generally pretty, please send in refill for albuterol Customs Guard Required: No Allergies No Known Allergies Allergy (Verified 04/20/24 09:34) Medication List - Last Reconciled 04/20/24 by Radha Cao MD albuterol sulfate 90 mcg/actuation (Ventolin HFA) 2 puffs inhalation Q4-6H PRN 6 months atorvastatin 20 mg PO DAILY baclofen 10 mg PO BEDTIME 10 days lisinopril-hydrochlorothiazide 10-12.5 mg 1 tab PO DAILY lorazepam 0.5 mg PO DAILY PRN 10 days metoprolol succinate ER 50 mg PO DAILY Do you need a note to return to daycare/school/sports/work: No HPI HPI copd: Details: 63 years old gentleman, known to have mild to moderate degree of COPD is here for yearly follow-up. He has had no acute exacerbation during the past 1 year. His complaint is same as usual which is getting short of breath if he walks up hill or if he walks fast on the level ground, He can still walk at least up to 2 miles per day. He has only occasional cough and has needed to use the Ventolin inhaler only about 7 times during the past 1 year. Luckily he has had no respiratory infection. Or exacerbation,, PFSH Medical History COPD (chronic obstructive pulmonary disease) H/O malignant melanoma of skin NSVT (nonsustained ventricular tachycardia) Second degree AV block Cardiac pacemaker in situ Surgical History History of Mohs micrographic surgery for skin cancer Hx of colonoscopy History of permanent cardiac pacemaker placement Family History Father Lung cancer Mother No problems noted. 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 ) Review of Systems Const All systems reviewed & are unremarkable except as noted in HPI and below Denies snoring Eyes Reports no additional complaints ENT Reports no additional complaints Card Denies chest pain, Denies irregular heart rhythm, Denies leg edema and Reports dyspnea on exertion (MILD) Resp Denies cough, Reports dyspnea on exertion (MILD), Denies snoring and Denies wheezing GI Reports no additional complaints Reports no additional complaints Musc Reports no additional complaints Skin/Breast Reports system reviewed and no additional complaints, except as documented Neuro Reports no additional complaints Psych Reports no additional complaints Aller/Immun Denies wheezing Physical Exam Vital Signs: Last Vital Signs Pulse 55 04/20/24 09:17 BP 112/64 04/20/24 09:17 Pulse Ox 96 04/20/24 09:17 Oxygen Delivery Method Room Air 04/20/24 09:17 BMI result Body Mass Index 25.9 Office Procedures Spirometry Testing Spirometry Comments: Spirometry done in the office, Dr. Cao has the results results scanned to his chart. 87166- Spirometry Results Reviewed Results Reviewed: SPIROMETRY 2021 2023 FVC 79 % 79 % FEV1 69 % 69 5 FEF 25-75 51 % 52 % Assessment & Plan Assessment & Plan (1) COPD (chronic obstructive pulmonary disease): Comment: HE IS KNOWN TO HAVE MILD COPD. AND HIS SYMPTOMS ARE RELATIVELY MILD. HAS HAD NO ACUTE EXCERBATIONS . Code(s): J44.9 - Chronic obstructive pulmonary disease, unspecified Category: Medical Qualifiers: COPD type: chronic bronchitis Chronic bronchitis type: simple Qualified Code(s): J41.0 - Simple chronic bronchitis Plan: TX: USE VENTOLIN 2 PUFFS Q 4-6 HOURS ONLY P.R.N. AND KEEP IT AVAILABLE ESPECIALLY WHEN GOING FOR CAMPING/HIKING REVISIT ONCE A YEAR AND IF NEEDED IN BETWEEN. Coding Level of Care Code Est Pt Level 3 (29376) Diagnoses Simple chronic bronchitis J41.0 COPD type: chronic bronchitis Chronic bronchitis type: simple CPT Codes Spirometry - CPT: 51460- Spirometry ([id number])
[2024-04-20 09:17] VITALS: BP 112/64; PULSE 55; O2SAT 96; BMI 25.9
== END 2024-04-20 09:47 | disposition home or self-care (01) ==
PROVIDERS: PCP Physician Assistant; Visit Provider Internal Medicine
DX: J41.0 Simple chronic bronchitis (principal)
CPT/HCPCS: 94010; 99213

== ENCOUNTER 2024-04-20 10:08 | Outpatient (REF) | payer MEDICARE, SELFPAY ==
[2024-04-20 14:11] LABS: Hematocrit 41.4 % (42.0-52.0); Hemoglobin 14.4 g/dl (14.0-18.0); Mean Corpuscular HGB Conc 34.8 g/dl (31.0-36.0); Mean Corpuscular Hemoglobin 31.9 pg (27.0-33.0); Mean Corpuscular Volume 91.6 fL (80.0-98.0); Platelet Count 186 X10*3/uL (160-400); Red Blood Count 4.52 X10*6/uL (4.60-5.80); Red Cell Distribution Width 12.6 % (11.0-16.0)
[2024-04-20 14:54] LABS: Creatinine Urine 140.65 mg/dL; Microalbum/Creatinine Ratio Ur 4.9 ug/mg cr (<30)
[2024-04-20 14:58] LABS: Alanine Aminotransferase 24 U/L (0-40); Alkaline Phosphatase 78 U/L (39-117); Anion Gap 12 (12-20); Aspartate Amino Transferase 26 U/L (5-37); Bilirubin Total 0.8 mg/dL (0.0-1.0); Blood Urea Nitrogen 19 mg/dL (9-16); Calcium 9.8 mg/dL (8.4-10.2); Carbon Dioxide 28 mmol/L (22-29); Chloride 107 mmol/L (96-108); Cholesterol 131 mg/dL (<200); Estimated Glomerular Filt Rate > 60; Glucose Fasting 101 mg/dL (60-99); HDL Cholesterol 50 mg/dL (>40); LDL Cholesterol Calculated 64 mg/dL (<100); Potassium 4.5 mmol/L (3.3-5.1); Sodium 142 mmol/L (135-145); Total Protein 6.5 g/dL (6.5-8.0); Triglycerides 88 mg/dL (<150)
[2024-04-20 15:11] LABS: Prostate Specific Antigen Scr 2.79 ng/mL (<0.05-4.0)
== END 2024-04-20 10:09 | disposition home or self-care (01) ==
LOC: HO.HMGCLDS 10:08
PROVIDERS: PCP Physician Assistant; Visit Provider Physician Assistant
DX: J41.0 Simple chronic bronchitis (principal); E78.2 Mixed hyperlipidemia; I10 Essential (primary) hypertension; Z12.5 Encounter for screening for malignant neoplasm of prostate
CPT/HCPCS: 36415; 80053; 80061; 82043; 82570; 84153; 85027; 94010; 99212

== ENCOUNTER → 2024-05-04 23:59 | Outpatient (BNV) | payer MEDICARE, SELFPAY ==
--- NOTE | 2024-05-06 13:44 | MHC.OFFVIS ---
Intake Visit Reasons: Remote device check- [facility] Allergies No Known Allergies Allergy (Verified 04/20/24 09:34) [facility] Medical History COPD (chronic obstructive pulmonary disease) H/O malignant melanoma of skin NSVT (nonsustained ventricular tachycardia) Second degree AV block Cardiac pacemaker in situ Surgical History History of Mohs micrographic surgery for skin cancer Hx of colonoscopy History of permanent cardiac pacemaker placement Family History Father Lung cancer Mother No problems noted. 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 ) Office Procedures Cardiac Device Check Cardiac Device Check Details: Remote pacemaker report generated 05/04/2024. Pacemaker function is adequate. One high ventricular rate episode consistent with SVT [id number] Cardiac Device Interrogation, pacemaker Procedure code (CPT) selection complete Assessment & Plan Assessment & Plan (1) Cardiac pacemaker in situ: Comment: For second-degree AV block, has not had any chest discomforts or palpitations. Code(s): Z95.0 - Presence of cardiac pacemaker Category: Medical Plan: See above Coding Level of Care Code Procedure Only Diagnoses Cardiac pacemaker in situ Z95.0 CPT Codes Cardiac Device Check - Cardiac Device 12: [id number] Cardiac Device Interrogation, pacemaker ([id number])
== END ==
PROVIDERS: PCP Physician Assistant; Visit Provider Internal Medicine Cardiovascular Disease
DX: I47.10 Supraventricular tachycardia, unspecified (principal); Z95.0 Presence of cardiac pacemaker
CPT/HCPCS: 93294

== ENCOUNTER → 2024-08-03 23:59 | Outpatient (BNV) | payer MEDICARE, SELFPAY ==
--- NOTE | 2024-08-17 17:24 | A.OFFVIS_ITS ---
Intake Visit Reasons: Remote device check- [facility] Allergies No Known Allergies Allergy (Verified 04/20/24 09:34) [facility] Medical History COPD (chronic obstructive pulmonary disease) H/O malignant melanoma of skin NSVT (nonsustained ventricular tachycardia) Second degree AV block Cardiac pacemaker in situ Surgical History History of Mohs micrographic surgery for skin cancer Hx of colonoscopy History of permanent cardiac pacemaker placement Family History Father Lung cancer Mother No problems noted. 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 ) Office Procedures Cardiac Device Check Cardiac Device Check Details: Remote pacemaker report generated 08/03/2024. Pacemaker function is adequate [id number] Cardiac Device Interrogation, pacemaker Procedure code (CPT) selection complete Assessment & Plan Assessment & Plan (1) Cardiac pacemaker in situ: Comment: For second-degree AV block, has not had any chest discomforts or palpitations. Code(s): Z95.0 - Presence of cardiac pacemaker Category: Medical Plan: See above Coding Level of Care Code Procedure Only Diagnoses Cardiac pacemaker in situ Z95.0 CPT Codes Cardiac Device Check - Cardiac Device 12: [id number] Cardiac Device Interrogation, pacemaker ([id number])
== END ==
PROVIDERS: PCP Physician Assistant; Visit Provider Internal Medicine Cardiovascular Disease
DX: Z45.018 Encounter for adjustment and management of other part of cardiac pacemaker (principal)
CPT/HCPCS: 93294

== ENCOUNTER 2024-08-20 14:58 | Outpatient (AMB) | payer MEDICARE, SELFPAY ==
[2024-08-20 15:19] VITALS: BP 124/72; PULSE 67; BMI 24.4
--- NOTE | 2024-08-20 15:19 | MHC.OFFVIS ---
Vital Signs 08/20/24 15:19 Height 5 ft 10 in Weight 169 lb 12.095 oz BMI 24.4 BP 124/72 Blood Pressure Location Lt brachial Position Sitting Pulse 67 Intake Visit Reasons: 1 yr f/up w/ pacer ck Intake Note: 1 year follow-up with ekg and [facility] check feeling good Technician Automated Equipment Required: No Allergies No Known Allergies Allergy (Verified 04/20/24 09:34) Medication List - Last Reconciled 08/20/24 by Caleb Mccrary MD albuterol sulfate 90 mcg/actuation (Ventolin HFA) 2 puffs inhalation Q4-6H PRN 6 months atorvastatin 20 mg PO DAILY lisinopril-hydrochlorothiazide 10-12.5 mg 1 tab PO DAILY lorazepam 0.5 mg PO DAILY PRN 10 days metoprolol succinate ER 50 mg PO DAILY HPI Comments Details: Holden comes for follow-up of his pacemaker. He has been overall doing well. Denies any exertional symptoms. Denies any lightheadedness, syncope. Remains fairly active. Denies any palpitations or prolonged irregular heartbeat. Takes all his medications. No heart failure symptoms. [facility] Medical History COPD (chronic obstructive pulmonary disease) H/O malignant melanoma of skin NSVT (nonsustained ventricular tachycardia) Second degree AV block Cardiac pacemaker in situ Surgical History History of Mohs micrographic surgery for skin cancer Hx of colonoscopy History of permanent cardiac pacemaker placement Family History Father Lung cancer Mother No problems noted. 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 ) Review of Systems Const Denies chills, Denies fatigue, Denies fever(s), Denies frequent falls, Denies weakness, Denies weight gain and Denies weight loss ENT Denies dizziness Card Denies chest pain, Denies leg edema, Denies lightheadedness, Denies palpitations, Denies dyspnea, Denies dyspnea on exertion, Denies orthopnea and Denies other (loss of consciousness) Resp Denies cough, Denies dyspnea and Denies dyspnea on exertion GI Denies hematochezia and Denies change in stool character Musc Denies abnormal gait, Denies muscle weakness, Denies numbness, Denies radiating pain into limb and Denies tingling Neuro Denies abnormal gait, Denies dizziness, Denies frequent falls, Denies numbness, Denies tingling and Denies weakness Endo Denies fatigue and Denies palpitations Physical Exam Vital Signs: Last Vital Signs Pulse 67 08/20/24 15:19 BP 124/72 08/20/24 15:19 BMI result Body Mass Index 24.4 Const General: cooperative, comfortable, alert and awake Nutritional Appearance: average body habitus Orientation/consciousness: patient oriented x3 Limitations: no limitations Neck Neck: Yes trachea midline, Yes supple and Yes no JVD Chest Chest palpation & inspection: normal inspection of the chest Resp Effort & Inspection: normal respiratory effort Auscultation: clear to auscultation bilaterally and diminished lung sounds Cardio Jugular venous distension: no JVD Palpation: normal PMI Rate: regular rate Rhythm: regular rhythm Heart sounds: S1 normal heart sound present and S2 normal heart sound present GI Auscultation: normal bowel sounds Skin General skin exam: no rashes or lesions noted Neuro General: patient oriented x3 and no focal motor deficits Extrem General: Yes no clubbing, cyanosis or edema Psych Appearance: grossly normal Office Procedures Cardiac Device Check Cardiac Device Check Details: Dual-chamber [facility] pacemaker in place. Programmed in DDDR at 60 beats per minute. Atrial pacing 24% of time. No nonsustained VT noted. Atrial pacing thresholds excellent and reprogrammed to enhance battery life. Ventricular pacing thresholds are adequate and in our capture mode. Atrial ventricular sensing is adequate. Pacing lead impedance is stable. Battery life is at 1.2 years [id number] Cardiac Device Check, pacemaker dual lead Procedure code (CPT) selection complete EKG Details: EKG shows normal sinus rhythm with unifocal isolated PVCs [id number], Complete Assessment & Plan Assessment & Plan (1) Cardiac pacemaker in situ: Comment: For second-degree AV block, has not had any chest discomforts or palpitations. Code(s): Z95.0 - Presence of cardiac pacemaker Category: Medical Plan: Cardiac pacemaker in-situ for initially transient second-degree AV block and now for more sinus bradycardia. Currently working well. Will follow-up remotely every 6 months and follow up in the clinic in 1 year's time. (2) NSVT (nonsustained ventricular tachycardia): Code(s): I47.2 - Ventricular tachycardia Category: Medical Plan: Nonsustained ventricular tachycardia without any significant structural heart abnormality. Has been remained suppressed on metoprolol therapy. Doing well on it. Continue the same. Avoidance of stimulants was discussed. Will continue monitor by remote telemetry. Follow up in the clinic in 1 year's time, sooner p.r.n.. Thank you for allowing me to partake in his care Coding Level of Care Code Est Pt Level 4 (42398) Complex EM visit Add On G2211 Diagnoses Cardiac pacemaker in situ Z95.0 NSVT (nonsustained ventricular tachycardia) I47.2 CPT Codes Cardiac Device Check - Cardiac Device 2: [id number] Cardiac Device Check, pacemaker dual lead ([id number]) EKG - CPT: 74485-Frekbdfqizjsqkzoy, Complete ([id number])
== END 2024-08-20 15:45 | disposition home or self-care (01) ==
LOC: HO.HCS 14:59
PROVIDERS: PCP Physician Assistant; Visit Provider Internal Medicine Cardiovascular Disease
DX: I47.20 Ventricular tachycardia, unspecified (principal); Z95.0 Presence of cardiac pacemaker
CPT/HCPCS: 93010; 93280; 99214; G2211

== ENCOUNTER → 2024-08-20 14:58 | Outpatient (BNVA) | payer MEDICARE, SELFPAY | PROVIDERS: PCP Physician Assistant; Visit Provider Internal Medicine Cardiovascular Disease | DX: I47.20 Ventricular tachycardia, unspecified (principal); I44.1 Atrioventricular block, second degree; Z45.010 Encounter for checking and testing of cardiac pacemaker pulse generator [battery] | CPT/HCPCS: 93005; 93280; 99212 ==

== ENCOUNTER → 2024-11-02 23:59 | Outpatient (BNV) | payer MEDICARE, SELFPAY ==
--- NOTE | 2024-11-03 13:43 | A.OFFVIS_ITS ---
Intake Visit Reasons: Remote device check- [facility] Allergies No Known Allergies Allergy (Verified 04/20/24 09:34) [facility] Medical History COPD (chronic obstructive pulmonary disease) H/O malignant melanoma of skin NSVT (nonsustained ventricular tachycardia) Second degree AV block Cardiac pacemaker in situ Surgical History History of Mohs micrographic surgery for skin cancer Hx of colonoscopy History of permanent cardiac pacemaker placement Family History Father Lung cancer Mother No problems noted. 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 ) Office Procedures Cardiac Device Check Cardiac Device Check Details: Remote pacemaker report generated 11/02/2023. Pacemaker function is adequate [id number] Cardiac Device Interrogation, pacemaker Procedure code (CPT) selection complete Assessment & Plan Assessment & Plan (1) Cardiac pacemaker in situ: Comment: For second-degree AV block, has not had any chest discomforts or palpitations. Code(s): Z95.0 - Presence of cardiac pacemaker Category: Medical Plan: See above Coding Level of Care Code Procedure Only Diagnoses Cardiac pacemaker in situ Z95.0 CPT Codes Cardiac Device Check - Cardiac Device 12: [id number] Cardiac Device Interrogation, pacemaker ([id number])
== END ==
PROVIDERS: PCP Physician Assistant; Visit Provider Internal Medicine Cardiovascular Disease
DX: I44.1 Atrioventricular block, second degree (principal); Z95.0 Presence of cardiac pacemaker
CPT/HCPCS: 93294

== ENCOUNTER → 2025-02-01 23:59 | Outpatient (BNV) | payer MEDICARE, SELFPAY ==
--- NOTE | 2025-02-03 12:32 | MHC.OFFVIS ---
Intake Visit Reasons: Remote device check- [facility] Allergies No Known Allergies Allergy (Verified 04/20/24 09:34) [facility] Medical History COPD (chronic obstructive pulmonary disease) H/O malignant melanoma of skin NSVT (nonsustained ventricular tachycardia) Second degree AV block Cardiac pacemaker in situ Surgical History History of Mohs micrographic surgery for skin cancer Hx of colonoscopy History of permanent cardiac pacemaker placement Family History Father Lung cancer Mother No problems noted. 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 ) Office Procedures Cardiac Device Check Cardiac Device Check Details: Remote pacemaker report generated 02/01/2025. Pacemaker function is okay [id number] Cardiac Device Interrogation, pacemaker Procedure code (CPT) selection complete Assessment & Plan Assessment & Plan (1) Cardiac pacemaker in situ: Comment: For second-degree AV block, has not had any chest discomforts or palpitations. Code(s): Z95.0 - Presence of cardiac pacemaker Category: Medical Plan: See above Coding Level of Care Code Procedure Only Diagnoses Cardiac pacemaker in situ Z95.0 CPT Codes Cardiac Device Check - Cardiac Device 12: [id number] Cardiac Device Interrogation, pacemaker ([id number])
== END ==
PROVIDERS: PCP Physician Assistant; Visit Provider Internal Medicine Cardiovascular Disease
DX: I44.1 Atrioventricular block, second degree (principal); Z95.0 Presence of cardiac pacemaker
CPT/HCPCS: 93294

== ENCOUNTER 2025-03-10 10:22 | Outpatient (AMB) | payer MEDICARE, SELFPAY ==
[2025-03-10 10:36] VITALS: BP 132/86; PULSE 74; TEMP 36.3; O2SAT 96; BMI 25.0
--- NOTE | 2025-03-10 10:36 | AM.OFFVISMDC ---
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 . Patient has pmhx significant for AV block (has pacemaker placed), COPD,? h/o melanoma, Insomnia , HTN, mood disorder. Today we discussed patient's end of life planning and [place] of care. We also did discuss patient's comprehensive care plan which was scanned into patient's documents.. Vaccine: UTD with PCV, up-to-date with COVID , up to date with tdap , decline flu vaccine ,UTD with shingles vaccine. . Colonoscopy: done in 2019- normal -repeat 10 years HPI Comments History of Present Illness Details reviewed past medical history- yes reviewed surgical / hospitalization history- yes reviewed current medications- yes reviewed family history- yes home safety throw rugs? grab bars? raised toilet seat? working smoke detectors? activities of daily living difficulty bathing or showering? difficulty dressing? difficulty using the toilet? difficulty getting in and out of bed? difficulty walking? receives help from other person's with any of the above tasks? instrumental activities of daily living uses telephone - gets to place out of walking distance- go shopping for groceries- repairs own meals- does own minor home maintenance- does own laundry- does own housework- manages own money- currently takes medication- end of life planning discussed advanced directives- yes advanced directives on file? discussed wishes expressed in advanced directives. fall risk have you had any falls with injuries in the past year? have you had 2 or more falls in the past year? fall risk assessment: [facility] Medical History COPD (chronic obstructive pulmonary disease) H/O malignant melanoma of skin NSVT (nonsustained ventricular tachycardia) Second degree AV block Cardiac pacemaker in situ Surgical History History of Mohs micrographic surgery for skin cancer Hx of colonoscopy History of permanent cardiac pacemaker placement Family History Father Lung cancer Mother No problems noted. 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 ) Questionnaire Medicare Wellness Checkup What [age] 65-69 What gender do you identify with?: male During the past 4 weeks, how much have you been bothered by emotional problems such as feeling anxious, depressed, irritable, sad or downhearted, and blue?: slightly During the past 4 weeks, has your physical & emotional health limited your social activities with family, friends, neighbors, or groups?: not at all During the past 4 weeks, how much bodily pain have you generally had?: very mild pain During the past 4 weeks, was someone available to help you if you needed & wanted help?: yes, quite a bit Can you get to places out of walking distance without help? (For eg., can you travel alone on buses, taxis or drive your car?): Yes Can you go shopping for groceries or clothes without someone's help?: Yes Can you prepare your own meals?: Yes Can you do your housework without help?: Yes Because of any health problems, do you need the help of another person with your personal care needs such as eating, bathing, dressing or getting around the house?: No Can you handle your own money without help?: Yes During the past 4 weeks, how would you rate your health in general?: very good During the past 4 weeks how have things been going for you?: pretty well Are you having difficulties driving your car?: no Do you always fasten your seat belt when you are in a car?: yes, usually During past 4 weeks, have you been bothered by the following: never: Falling or dizzy when standing up, Trouble eating well?, Teeth or denture problems? and Problems using the telephone? and sometimes: Sexual problems? and Tiredness or fatigue? Have you fallen 2 or more times in the past year?: No Are you afraid of falling?: Yes Are you a smoker?: no During the past 4 weeks, how many drinks of wine, beer, or other alcoholic beverages did you have?: no alcohol at all Have you been given information to help with the following?: yes: Hazards in your house that might hurt you? and yes: Keeping track of your medications? How often do you have trouble taking medicines the way you have been told to take them?: I always take medicine as prescribed How confident are you that you can control & manage most of your health problems?: very confident What is your race?: White Mini Mental State Exam (MMSE) Orientation What is the (year) (season) (date) (day) (month)?: year Where are we (state) (county) (town or city) (hospital) (floor)?: town or city Attention & Calculation (CHOOSE ONE) Spell WORLD backwards (DLROW): 5 letters Score Score: 7 Activity of Daily Living Bathing - sponge bath, tub bath or shower: receives no assistance (gets in/out by self, if usual bathing means Dressing - getting clothes from closets & drawers, including inner/outer garments & fasteners.: gets clothes & gets completely dressed without help Toileting - going to the 'toilet room' for urine/bowel elimination & cleaning self/arranging clothes: goes to toilet room, cleans self, arranges clothes without help Transfer: moves in & out of bed and chair without help (may use support object) Continence: controls urination/bowel movements completely by self Feeding: feeds self without help Total Score: 0 Information obtained from: patient Using telephone: independent Traveling: independent Shopping: independent Preparing meals: independent Housework: independent Taking medicine: independent Managing money: independent PHQ-9 Over the last 2 weeks, how often have you been bothered by any of the following problems? 1. Little interest or pleasure in doing things: not at all 2. Feeling down, depressed, or hopeless: not at all 3. Trouble falling or staying asleep, or sleeping too much: not at all 4. Feeling tired or having little energy: not at all 5. Poor appetite or overeating: not at all 6. Feeling bad about yourself - or that you are a failure or have let yourself or your family down: not at all 7. Trouble concentrating on things, such as reading the newspaper or watching television: not at all 8. Moving or speaking so slowly that other people could have noticed. Or the opposite - being so fidgety or restless that you have been moving around a lot more than usual: not at all 9. Thoughts that you would be better off or of hurting yourself in some way: not at all Total score: 0 Depression Screening Interpretation: Negative Depression Screening Done: Yes 48673 - PHQ-9 Billing: Yes Source: Developed by Drs. Dipak Thomas, Annabella Joya, Raciel Gauthier and colleagues, with an educational reagan from [email or web address]. Physical Exam Vital Signs: Last Vital Signs Temp 97.3 F 03/10/25 10:36 Pulse 74 03/10/25 10:36 BP 132/86 03/10/25 10:36 Pulse Ox 96 03/10/25 10:36 Oxygen Delivery Method Room Air 03/10/25 10:36 BMI result Body Mass Index 25.0 HEENT Other: hearing screening whisper test- pass Eyes Other: vision screening- 20 20 OS OD OU Other: urinary incontinence? no Neuro Other: balance Romberg- normal tandem walk test- able walk-in turned test- able rise from sit to stand- within 2 seconds Assessment & Plan Assessment & Plan (1) Medicare annual wellness visit, initial: Code(s): Z00.00 - Encounter for general adult medical examination without abnormal findings Plan: As per HPI Orders: Orders Lipid Panel 03/10/25 E78.2 - Mixed hyperlipidemia Microalbumin, Random (w Creat) 03/10/25 I10 - Essential (primary) hypertension Comprehensive [place]. Panel Fast 03/10/25 I10 - Essential (primary) hypertension Complete Blood Count no Diff 03/10/25 J41.0 - Simple chronic bronchitis Prostate Specific Antigen Scr 03/10/25 E78.2 - Mixed hyperlipidemia, Z12.5 - Encounter for screening for malignant neoplasm of prostate Quality Reporting (2019) Depression/Bipolar (159/160/161/177) PHQ-9: Total score: 0 Coding Level of Care Code Medicare First (G0438) Diagnoses Medicare annual wellness visit, initial Z00.00 CPT Codes Advance Care Planning - Time spent: 1-15 minutes, not on file ([id number]) Additional Codes PHQ-9 - 90250 - PHQ-9 Billing: Yes ([id number]) Advance Care Planning Advance Care Planning discussion: Exists, not on file Date of discussion: 03/13/25 Forms completed: SARBJIT Time spent: 1-15 minutes, not on file Actual minutes spent: 2
== END 2025-03-10 11:21 | disposition home or self-care (01) ==
LOC: HO.HMCH 10:23
PROVIDERS: PCP Physician Assistant; Visit Provider Physician Assistant
DX: Z00.00 Encounter for general adult medical examination without abnormal findings (principal)

== ENCOUNTER → 2025-03-10 10:22 | Outpatient (BNVA) | payer MEDICARE, SELFPAY | PROVIDERS: PCP Physician Assistant; Visit Provider Physician Assistant | DX: Z00.00 Encounter for general adult medical examination without abnormal findings (principal); E78.2 Mixed hyperlipidemia; I10 Essential (primary) hypertension; J41.0 Simple chronic bronchitis | CPT/HCPCS: 96127 ==

== ENCOUNTER 2025-03-19 09:56 | Outpatient (REF) | payer MEDICARE, SELFPAY ==
[2025-03-19 13:31] LABS: Hematocrit 41.1 % (42.0-52.0); Hemoglobin 14.6 g/dl (14.0-18.0); Mean Corpuscular HGB Conc 35.5 g/dl (31.0-36.0); Mean Corpuscular Hemoglobin 32.5 pg (27.0-33.0); Mean Corpuscular Volume 91.5 fL (80.0-98.0); Mean Platelet Volume 9.8 fL (9.4-12.4); Platelet Count 204 X10*3/uL (160-400); Red Blood Count 4.49 X10*6/uL (4.60-5.80); Red Cell Distribution Width 12.1 % (11.0-16.0); White Blood Count 5.9 X10*3/uL (4.8-10.8)
[2025-03-19 14:04] LABS: Creatinine Urine 116.85 mg/dL; Microalbum/Creatinine Ratio Ur 5.1 ug/mg cr (<30)
[2025-03-19 14:10] LABS: Alanine Aminotransferase 29 U/L (0-40); Albumin Level 4.1 g/dL (3.5-5.0); Anion Gap 8 (12-20); Aspartate Amino Transferase 31 U/L (5-37); Bilirubin Total 0.9 mg/dL (0.0-1.0); Blood Urea Nitrogen 24 mg/dL (9-16); Calcium 9.6 mg/dL (8.4-10.2); Carbon Dioxide 31 mmol/L (22-29); Chloride 105 mmol/L (96-108); Estimated Glomerular Filt Rate > 60; Glucose Fasting 107 mg/dL (60-99); Sodium 140 mmol/L (135-145); Total Protein 6.5 g/dL (6.5-8.0)
[2025-03-19 14:11] LABS: Alkaline Phosphatase 67 U/L (39-117); Cholesterol 140 mg/dL (<200); HDL Cholesterol 46 mg/dL (>40); LDL Cholesterol Calculated 70 mg/dL (<100); Triglycerides 123 mg/dL (<150)
== END 2025-03-19 09:57 | disposition home or self-care (01) ==
LOC: HO.HMGCLDS 09:56
PROVIDERS: PCP Physician Assistant; Visit Provider Physician Assistant
DX: E78.2 Mixed hyperlipidemia (principal); I10 Essential (primary) hypertension; J41.0 Simple chronic bronchitis; Z12.5 Encounter for screening for malignant neoplasm of prostate
CPT/HCPCS: 36415; 80053; 80061; 82043; 82570; 84153; 85027

== ENCOUNTER 2025-04-05 09:50 | Outpatient (AMB) | payer MEDICARE, SELFPAY ==
[2025-04-05 10:00] VITALS: BP 102/60; PULSE 60; O2SAT 97; BMI 25.1
--- NOTE | 2025-04-05 10:00 | MHC.OFFVIS ---
Vital Signs 04/05/25 10:00 Height 5 ft 10 in Weight 175 lb BMI 25.1 BP 102/60 Blood Pressure Location Lt brachial Position Sitting Pulse 60 Pulse Source Pulse Oximeter Pulse Oximetry (%) 97 Oxygen Delivery Method Room Air Intake Visit Reasons: COPD Intake Note: pt is here for follow up and states he is feeling good. 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 Allergies No Known Allergies Allergy (Verified 04/05/25 10:26) Medication List - Last Reconciled 04/05/25 by Radha Cao MD albuterol sulfate 90 mcg/actuation (Ventolin HFA) 2 puffs inhalation Q4-6H PRN 6 months atorvastatin 20 mg PO DAILY lisinopril-hydrochlorothiazide 10-12.5 mg 1 tab PO DAILY lorazepam 0.5 mg PO DAILY PRN 10 days metoprolol succinate ER 50 mg PO DAILY Do you need a note to return to daycare/school/sports/work: No HPI HPI COPD: Details: MAYTE NUNEZ, ( DEVOTED [employer], AFFILIATED WITH [facility] IN [facility] ) COMES AFTER 1 YEAR FOR YEARLY FOLLOW-UP. KEVIN PAVON HAS BEEN DOING VERY WELL AND USES VENTOLIN INHALER ONLY ONCE IN A WHILE. 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 THERE HAS BEEN NO CHANGE IN HIS PULMONARY STATUS. LUCKILY HE HAS HAD NO ACUTE RESPIRATORY INFECTION OR EXACERBATION. HE IS NONSMOKER( QUIT MANY YEARS AGO AFTER SMOKING 30 PACK YEARS ) [facility], [facility] Medical History COPD (chronic obstructive pulmonary disease) H/O malignant melanoma of skin NSVT (nonsustained ventricular tachycardia) Second degree AV block Cardiac pacemaker in situ Surgical History History of Mohs micrographic surgery for skin cancer Hx of colonoscopy History of permanent cardiac pacemaker placement Family History Father Lung cancer Mother No problems noted. 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 ) Review of Systems Const All systems reviewed & are unremarkable except as noted in HPI and below Denies snoring Eyes Reports no additional complaints ENT Reports no additional complaints Card Denies chest pain, Denies irregular heart rhythm, Denies leg edema and Reports dyspnea on exertion (MILD) Resp Denies cough, Reports dyspnea on exertion (MILD), Denies snoring and Denies wheezing GI Reports no additional complaints Reports no additional complaints Musc Reports no additional complaints Skin/Breast Reports system reviewed and no additional complaints, except as documented Neuro Reports no additional complaints Psych Reports no additional complaints Aller/Immun Denies wheezing Physical Exam Vital Signs: Last Vital Signs Pulse 60 04/05/25 10:00 BP 102/60 04/05/25 10:00 Pulse Ox 97 04/05/25 10:00 Oxygen Delivery Method Room Air 04/05/25 10:00 BMI result Body Mass Index 25.1 Const General: healthy appearing, comfortable, no acute distress, alert and awake Orientation/consciousness: patient oriented x3 HEENT Head: Yes normal to inspection General nose exam: No nasal polyps present and No nasal discharge present Face and sinus: Yes sinuses nontender Mouth: oropharynx normal Throat: Yes posterior oropharynx normal Eyes General: appearance normal, both eyes and all related structures Neck Neck: Yes normal visual inspection, Yes no lymphadenopathy, Yes trachea midline and Yes no JVD Thyroid: Thyroid normal Chest Chest palpation & inspection: normal inspection of the chest, normal palpation of entire chest wall and no tenderness Resp Auscultation: clear to auscultation bilaterally, no crackles, no wheezes and diminished lung sounds (SLIGHTLY DYSPNEAC ) Cardio Palpation: normal PMI Rate: regular rate Rhythm: regular rhythm Heart sounds: no gallops and no murmurs Peripheral pulses: Peripheral pulses 2+ throughout GI Palpation (GI): Soft to palpation, nontender, No hepatosplenomegaly present and no masses Auscultation: normal bowel sounds Back/Spine/Pelvis Thoracic/Lumbar Spine: thoracic and lumbar spine normal to inspection Skin General skin exam: no rashes or lesions noted Neuro General: patient oriented x3 and no focal motor deficits Cranial nerves: Yes CN's II-XII intact bilaterally Extrem General: Yes normal to inspection, Yes no clubbing, cyanosis or edema and Yes no calf tenderness Psych Appearance: grossly normal and well kempt Speech and movement: Normal speech and movement present Assessment & Plan Assessment & Plan (1) COPD (chronic obstructive pulmonary disease): Comment: HE IS KNOWN TO HAVE MILD COPD. AND HIS SYMPTOMS ARE RELATIVELY MILD. HAS HAD NO ACUTE EXCERBATIONS . Code(s): J44.9 - Chronic obstructive pulmonary disease, unspecified Category: Medical Qualifiers: COPD type: chronic bronchitis Chronic bronchitis type: simple Qualified Code(s): J41.0 - Simple chronic bronchitis Plan: HAD A GOOD GENERAL TALK. REASSURED ABOUT HIS PULMONARY STATUS. USE VENTOLIN MDI 1 OR 2 PUFFS Q 6 HOURS ONLY P.R.N.. PRESCRIPTION IS RENEWED. Medications: Refilled albuterol sulfate 90 mcg/actuation (Ventolin HFA) 2 puffs inhalation Q4-6H PRN 6.7 grams 2RF shortness of breath or wheezing 6 months Coding Level of Care Code Est Pt Level 3 (06076) Diagnoses Simple chronic bronchitis J41.0 COPD type: chronic bronchitis Chronic bronchitis type: simple
== END 2025-04-05 11:21 | disposition home or self-care (01) ==
LOC: HO.HPS 09:51
PROVIDERS: PCP Physician Assistant; Visit Provider Internal Medicine
DX: J41.0 Simple chronic bronchitis (principal)
CPT/HCPCS: 99213

== ENCOUNTER → 2025-04-05 09:50 | Outpatient (BNVA) | payer MEDICARE, SELFPAY | PROVIDERS: PCP Physician Assistant; Visit Provider Internal Medicine | DX: J41.0 Simple chronic bronchitis (principal) | CPT/HCPCS: 99212 ==

== ENCOUNTER → 2025-08-02 23:59 | Outpatient (BNV) | payer MEDICARE, SELFPAY ==
--- NOTE | 2025-08-03 17:27 | A.OFFVIS_ITS ---
Intake Visit Reasons: Remote device check- [facility] Allergies No Known Allergies Allergy (Verified 04/05/25 10:26) [facility] Medical History COPD (chronic obstructive pulmonary disease) H/O malignant melanoma of skin NSVT (nonsustained ventricular tachycardia) Second degree AV block Cardiac pacemaker in situ Surgical History History of Mohs micrographic surgery for skin cancer Hx of colonoscopy History of permanent cardiac pacemaker placement Family History Father Lung cancer Mother No problems noted. 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 ) Office Procedures Cardiac Device Check Cardiac Device Check Details: Remote pacemaker report generated 08/02/2025. Pacemaker function is adequate. High ventricular rate probably suggestive of artifact [id number] Cardiac Device Interrogation, pacemaker Procedure code (CPT) selection complete Assessment & Plan Assessment & Plan (1) Cardiac pacemaker in situ: Comment: For second-degree AV block, has not had any chest discomforts or palpitations. Code(s): Z95.0 - Presence of cardiac pacemaker Category: Medical Plan: See above Coding Level of Care Code Procedure Only Diagnoses Cardiac pacemaker in situ Z95.0 CPT Codes Cardiac Device Check - Cardiac Device 12: 64626-Eyxopv Cardiac Device Interrogation, pacemaker ([id number])
== END ==
PROVIDERS: PCP Physician Assistant; Visit Provider Internal Medicine Cardiovascular Disease
DX: I44.1 Atrioventricular block, second degree (principal); Z95.0 Presence of cardiac pacemaker
CPT/HCPCS: 93294

== ENCOUNTER 2025-08-19 10:26 | Outpatient (AMB) | payer MEDICARE, SELFPAY ==
--- NOTE | 2025-08-19 10:30 | A.OFFVIS_ITS ---
Vital Signs 08/19/25 10:31 Height 5 ft 10 in Weight 174 lb 2.643 oz BMI 25.0 BP 120/64 Blood Pressure Location Lt brachial Position Sitting Pulse 65 Intake Visit Reasons: 1 yr w/pacer check Intake Note: Follow-up with [facility] check feeling good [employer] Required: No Allergies No Known Allergies Allergy (Verified 04/05/25 10:26) Medication List - Last Reconciled 08/19/25 by Caleb Mccrary MD albuterol sulfate 90 mcg/actuation (Ventolin HFA) 2 puffs inhalation Q4-6H PRN 6 months atorvastatin 20 mg PO DAILY lisinopril-hydrochlorothiazide 10-12.5 mg 1 tab PO DAILY lorazepam 0.5 mg PO DAILY PRN 10 days metoprolol succinate ER 50 mg PO DAILY HPI Comments Details: Holden comes for follow-up. He notices when he is walking the dog and going up an incline he feels short of breath also feels chest tightness. He did not pay much attention to it and thought that this was related to COPD. He has not other complaints. His blood pressures been generally well controlled. Denies any orthopnea, PND, leg edema. No lightheadedness, syncope, palpitations. Taking all his medications. Comes for pacer evaluation. [facility], 1928–1983 Medical History COPD (chronic obstructive pulmonary disease) H/O malignant melanoma of skin NSVT (nonsustained ventricular tachycardia) Second degree AV block Cardiac pacemaker in situ Surgical History History of Mohs micrographic surgery for skin cancer Hx of colonoscopy History of permanent cardiac pacemaker placement Family History Father Lung cancer Mother No problems noted. 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 ) Review of Systems Const Denies chills, Denies fatigue, Denies fever(s), Denies frequent falls, Denies weakness, Denies weight gain and Denies weight loss ENT Denies dizziness Card Denies chest pain, Denies leg edema, Denies lightheadedness, Denies p alpitations, Denies dyspnea, Denies dyspnea on exertion, Denies orthopnea and Denies other (loss of consciousness) Resp Denies cough, Denies dyspnea and Denies dyspnea on exertion GI Denies hematochezia and Denies change in stool character Musc Denies abnormal gait, Denies muscle weakness, Denies numbness, Denies radiating pain into limb and Denies tingling Neuro Denies abnormal gait, Denies dizziness, Denies frequent falls, Denies numbness, Denies tingling and Denies weakness Endo Denies fatigue and Denies palpitations Physical Exam Vital Signs: Last Vital Signs Pulse 65 08/19/25 10:31 BP 120/64 08/19/25 10:31 BMI result Body Mass Index 25.0 Const General: cooperative, comfortable, alert and awake Nutritional Appearance: average body habitus Orientation/consciousness: patient oriented x3 Limitations: no limitations Neck Neck: Yes trachea midline, Yes supple and Yes no JVD Chest Chest palpation & inspection: normal inspection of the chest Resp Effort & Inspection: normal respiratory effort Auscultation: clear to auscultation bilaterally and diminished lung sounds Cardio Jugular venous distension: no JVD Palpation: normal PMI Rate: regular rate Rhythm: regular rhythm Heart sounds: S1 normal heart sound present and S2 normal heart sound present GI Auscultation: normal bowel sounds Skin General skin exam: no rashes or lesions noted Neuro General: patient oriented x3 and no focal motor deficits Extrem General: Yes no clubbing, cyanosis or edema Psych Appearance: grossly normal Office Procedures Cardiac Device Check Cardiac Device Check Details: Dual-chamber [facility] pacemaker in place. Programmed in DDDR at 60 beats per minute. Atrial pacing 25% of the time. Atrial pacing thresholds adequate and in auto capture mode. Ventricular pacing thresholds elevated and reprogrammed to enhance safety. Atrial ventricular sensing is adequate. Pacing lead impedance is stable. Battery life is at about 8 months [id number] Cardiac Device Check, pacemaker dual lead Procedure code (CPT) selection complete EKG Details: EKG shows normal sinus rhythm with normal EKGs [id number], Complete Assessment & Plan Assessment & Plan (1) Exertional chest pain: Code(s): R07.9 - Chest pain, unspecified Plan: Patient complains of symptoms exertional chest tightness which are kind of [place]ot concerning although he does have underlying COPD and this could be related to bronchospastic airway disease he is also at risk for underlying coronary artery disease. Would suggest a exercise treadmill stress test given his normal baseline EKGs. Also suggest an echocardiogram to assess for LV systolic and diastolic function. This will be scheduled in near future. Further treatment based on the findings. (2) Cardiac pacemaker in situ: Comment: For second-degree AV block, has not had any chest discomforts or palpitations. Code(s): Z95.0 - Presence of cardiac pacemaker Category: Medical Plan: Cardiac pacemaker in-situ, working well. Reprogrammed for adequate function. Will follow up remotely. Process of remote monitoring was discussed with him. His battery life is on the lower side and potential need for battery replacement was discussed with him. He understands. No evidence of nonsustained ventricular tachycardia on metoprolol therapy. Continue the same (3) HTN (hypertension): Code(s): I10 - Essential (primary) hypertension Category: Medical Qualifiers: Hypertension type: essential hypertension Qualified Code(s): I10 - Essential (primary) hypertension Plan: Hypertension which is currently well optimized advised to monitor blood pressure at home maintain a log. Goal blood pressure less than 130/84. Low-salt diet was discussed. Importance of compliance with medication was discussed. He understands agrees. Will follow up in the clinic in 1 year's time, sooner PRN. Thank you for allowing me to partake in his care Coding Level of Care Code Est Pt Level 4 (04589) Complex EM visit Add On G2211 Diagnoses Exertional chest pain R07.9 Cardiac pacemaker in situ Z95.0 Essential hypertension I10 Hypertension type: essential hypertension CPT Codes Cardiac Device Check - Cardiac Device 2: [id number] Cardiac Device Check, pacema ker dual lead ([id number]) EKG - CPT: 38308-Wnrhmbxqczwexhtqi, Complete ([id number])
[2025-08-19 10:31] VITALS: BP 120/64; PULSE 65; BMI 25.0
== END 2025-08-19 10:59 | disposition home or self-care (01) ==
LOC: HO.HCS 10:26
PROVIDERS: PCP Physician Assistant; Visit Provider Internal Medicine Cardiovascular Disease
DX: R07.9 Chest pain, unspecified (principal); Z95.0 Presence of cardiac pacemaker; I10 Essential (primary) hypertension
CPT/HCPCS: 93010; 93280; 99214; G2211

== ENCOUNTER → 2025-08-19 10:26 | Outpatient (BNVA) | payer MEDICARE, SELFPAY | PROVIDERS: PCP Physician Assistant; Visit Provider Internal Medicine Cardiovascular Disease | DX: Z45.018 Encounter for adjustment and management of other part of cardiac pacemaker (principal); R07.89 Other chest pain; I10 Essential (primary) hypertension | CPT/HCPCS: 93005; 93280; 99212 ==